=== PATIENT | male | born 1970 | race Caucasian/White ===

== ENCOUNTER 2019-09-24 14:20 | Emergency (ER) | payer OTHER ==
[~2019-09-24] VITALS: Ht 167.6 cm; Wt 63.5 kg
[2019-09-24 17:25] VITALS: BP 117/83
== END 2019-09-24 17:25 | disposition home or self-care (01) ==
LOC: ER 14:20
DX: F10.129 Alcohol abuse with intoxication, unspecified (principal); Y90.9 Presence of alcohol in blood, level not specified